=== PATIENT | female | born 1985 | race Caucasian/White ===

== ENCOUNTER 2020-09-22 11:20 | Emergency (ER) | payer MEDICARE, MEDICAID ==
[2020-09-22] MEDS ORDERED: Midazolam HCl 2 mg/2 ml Vial ONE (11:26)
[2020-09-22] MEDS ORDERED: Haloperidol Lactate 5 MG/ML VIAL ONE (11:31)
[2020-09-22] MEDS ORDERED: diphenhydrAMINE 50 MG/ML VIAL ONE (11:31)
[2020-09-22] MEDS ORDERED: Midazolam HCl 5 mg/ml Vial ONE (11:43)
[2020-09-22 11:47] LABS: #Basophils 0.2 thou/uL (0.0-0.2); #Eosinphils 0.1 thou/uL (0.0-0.7); #Lymphocytes 4.9 thou/uL (1.20-3.40); #Monocytes 1.1 thou/uL (0.11-0.59); #Neutrophils 7.8 thou/uL (1.40-6.50); %Basophils 1.4 % (0.0-1.0); %Eosinophils 0.5 % (0.0-10.0); %Lymphocytes 34.6 % (21.0-51.0); %Monocytes 7.7 % (0.0-10.0); %Neutrophils 55.7 % (42.0-75.0); Mean Corpuscular HGB CONC 32.2 g/dL (32.0-36.0); Mean Corpuscular Hemoglobin 29.8 pg (27.0-31.0); Mean Corpuscular Volume 92.4 fL (78.0-98.0); Platelet Count 372 thou/uL (130-400); RBC Distribution Width 12.6 % (11.5-14.5); Red Blood Cell (RBC) Count 4.72 mill/uL (4.20-5.40); White Blood Cell (WBC) Count 14.1 thou/uL (4.8-10.8)
[2020-09-22 12:00] LABS: BHCG - Serum Negative (NEGATIVE); Pregs Control Background? CLEAR/WHITE (CLR/WHITE); Pregs Control Bar Appear? YES (CONTROL BAR)
[2020-09-22 12:26] LABS: Thyroid Stimulating Hormone 2.2631 uIU/mL (0.35-4.94)
[2020-09-22 12:37] LABS: Albumin 3.6 g/dL (3.5-5.0)
[2020-09-22 12:38] LABS: Chloride 109 mmol/L (98-107); Potassium 3.4 mmol/L (3.5-5.1); Sodium 139 mmol/L (136-145)
[2020-09-22 12:39] LABS: Calcium 8.3 mg/dL (7.8-10.44); Glucose 116 mg/dL (70-105)
[2020-09-22 12:40] LABS: Globulin 2.9 g/dL (2.4-3.5); Protein, Total 6.5 g/dL (6.0-8.3)
[2020-09-22 12:41] LABS: Anion Gap 10 mmol/L (10-20); Bilirubin, Total 0.5 mg/dL (0.2-1.2); Carbon Dioxide 23 mmol/L (22-29)
[2020-09-22 12:42] LABS: Alkaline Phosphatase 76 U/L (40-110)
[2020-09-22 12:43] LABS: Calc. Creatinine Clearance 0 mL/min (70-130)
[2020-09-22 12:44] LABS: AST (SGOT) 25 U/L (5-34); BUN (Urea Nitrogen) 16 mg/dL (7.0-18.7)
[2020-09-22 12:45] LABS: ALT (SGPT) 20 U/L (8-55)
[2020-09-22 12:47] LABS: Alcohol Less than 10 mg/dL (Less than 10)
[2020-09-22 12:49] LABS: Magnesium 1.6 mg/dL (1.6-2.6); Salicylate Less than 8.0 mg/dL (15.0-30.0)
[2020-09-22 12:50] LABS: Acetaminophen Less than 6.0 mcg/mL (10.0-30.0)
[2020-09-22 13:21] LABS: Bacteria/HPF None Seen HPF (None Seen); Bilirubin Negative (Negative); Blood, Urine Negative (Negative); Clarity Clear (Clear); Glucose, Urine (Dipstick) Normal (Negative); Ketone, Urine 40 mg/dL (Negative); Leukocyte Negative Leu/uL (Negative); Nitrite Negative (Negative); Pregnancy Test - Urine (BHCG) Negative (Negative); Protein, Urine (Dipstick) 70 mg/dL (Neg-Trace); RBC/HPF 0-3 HPF (0-3); Specific Gravity, Urine 1.031 (1.002-1.036); Squamous Epithelial 0-3 HPF (0-3); Urobilinogen Normal mg/dL (Less than 2); WBC/HPF 0-3 HPF (0-3)
[2020-09-22 13:22] LABS: Pregu Control Background? CLEAR/WHITE (CLR/WHITE); Pregu Control Bar Appear? YES (CONTROL BAR); Specific Gravity 1.031 (1.002-1.036)
[2020-09-22 13:32] LABS: Amphetamine Detected (NotDetected); Barbiturates Screen Not Detected (NotDetected); Benzodiazepine Screen Not Detected (NotDetected); Cocaine Metabolite Screen Not Detected (NotDetected); Medtox Control Line Valid? VALID (VALID); Medtox Reader # READER 4; Methadone Not Detected (NotDetected); Methamphetamine Detected (NotDetected); Opiate Screen Not Detected (NotDetected); Oxycodone Screen Not Detected (NotDetected); Phencyclidine (PCP) Not Detected (NotDetected); THC/Cannabinoid Screen Not Detected (NotDetected); Tricyclic Screen Not Detected (NotDetected)
== END 2020-09-22 15:04 | disposition home or self-care (01) ==
LOC: ERS 11:20
DX: F15.129 Other stimulant abuse with intoxication, unspecified (principal)
CPT/HCPCS: 36415; 51701; 80053; 80306; 80307; 81003; 81015; 81025; 82550; 83735; 84443; 84484; 84703; 85025; 93005; 96372; 96374; 96375; J1200; J1630; J2250

== ENCOUNTER 2022-04-14 15:41 | Emergency (ER) | payer MEDICARE, MEDICAID ==
[2022-04-14] MEDS ORDERED: Ketorolac Tromethamine 30 MG/ML VIAL ONE (16:06)
[2022-04-14] MEDS ORDERED: Bupivacaine 0.25% 10 ML VIAL ONE (16:06)
[2022-04-14] MEDS ORDERED: Bicillin LA 1.2 MILLION UNITS/2 ML SYRINGE ONE (16:49)
== END 2022-04-14 17:59 | disposition home or self-care (01) ==
LOC: ERS 15:41
DX: S02.5XXA Fracture of tooth (traumatic), initial encounter for closed fracture (principal); I10 Essential (primary) hypertension; Z79.899 Other long term (current) drug therapy
CPT/HCPCS: 64400; 96372; J0561; J1885; S0020